=== PATIENT | female | born 1965 | race Asian ===

== ENCOUNTER 2017-02-20 05:00 | Observation (INO) | payer OTHER ==
[~2017-02-20] VITALS: Ht 165.1 cm; Wt 62.6 kg
[2017-02-20] MEDS ORDERED: SODIUM CHLORIDE 0.9% 1,000 ML IV ONE ×2 (05:59→09:00)
[2017-02-20] MEDS ORDERED: ONDANSETRON 2MG/ML, 2ML IVPush ONE (06:00)
[2017-02-20] MEDS ORDERED: FAMOTIDINE 20 MG/2 ML IVP ONE (06:00)
[2017-02-20] MEDS ORDERED: MORPHINE SULFATE 4 MG/ML, 1ML IVPush PRN (06:00)
[2017-02-20] MEDS ORDERED: SODIUM CHLORIDE FLUSH 10ML SYR IVF ONE (06:00)
[2017-02-20] MEDS ORDERED: SODIUM CHLORIDE 0.9% 1,000ML IVBOLUS ONE (06:00)
[2017-02-20] MEDS ORDERED: FAMOTIDINE 20 MG/2 ML ONE (06:09)
[2017-02-20] MEDS ORDERED: ONDANSETRON 2MG/ML, 2ML ONE (06:09)
[2017-02-20] MEDS ORDERED: morphine SULFATE 10 MG/ML, 1ML ONE (06:09)
[2017-02-20 06:34] LABS: HEMATOCRIT 43.7 % (34.6-47.8); HEMOGLOBIN 14.8 g/dL (11.7-16.4)
[2017-02-20 06:45] LABS: ASPARTATE AMINO TRANSFERASE 14 U/L (15-37); BLOOD UREA NITROGEN 16 mg/dL (7-18)
[2017-02-20] MEDS ORDERED: ENALAPRILAT 1.25 MG/ML, 2ML IVPush PRN (09:00)
[2017-02-20] MEDS ORDERED: ONDANSETRON 2MG/ML, 2ML IVPush PRN (09:00)
[2017-02-20] MEDS ORDERED: DOCUSATE 100 MG CAPSULE PO PRN (09:00)
[2017-02-20] MEDS ORDERED: morphine SULFATE 10 MG/ML, 1ML IVPush PRN (09:00)
[2017-02-20] MEDS ORDERED: ACETAMINOPHEN 325 MG TABLET PO PRN (09:00)
[2017-02-20] MEDS ORDERED: BISACODYL 10 MG SUPP PR PRN (09:00)
[2017-02-20] MEDS ORDERED: SODIUM CHLORIDE FLUSH 10ML SYR IVF PRN (09:30)
[2017-02-20] MEDS ORDERED: OMNIPAQUE 350 MG/ML, 100ML BOTTLE ONE (09:44)
[2017-02-20 10:02] VITALS: BP 116/75
[2017-02-20] MEDS: SODIUM CHLORIDE 0.9% 1,000 ML IV SCH ×2 (12:37→21:54)
[2017-02-20 13:33] VITALS: BP 112/72
[2017-02-20] MEDS: ONDANSETRON ODT 4 MG PO PRN (16:07)
[2017-02-20 19:39] VITALS: BP 109/64
[2017-02-21 02:21] VITALS: BP 103/68
[2017-02-21 05:48] LABS: HEMATOCRIT 35.9 % (34.6-47.8); HEMOGLOBIN 11.9 g/dL (11.7-16.4); WHITE BLOOD COUNT 5.8 x10^3/uL (3.4-10)
[2017-02-21 06:04] LABS: ASPARTATE AMINO TRANSFERASE 11 U/L (15-37); BLOOD UREA NITROGEN 12 mg/dL (7-18)
[2017-02-21] MEDS: SODIUM CHLORIDE 0.9% 1,000 ML IV SCH ×2 (07:14→18:00)
[2017-02-21 07:45] VITALS: BP 103/66
[2017-02-21] MEDS: ONDANSETRON ODT 4 MG PO PRN ×2 (13:23→18:37)
[2017-02-21 14:44] VITALS: BP 107/63
[2017-02-21] MEDS ORDERED: ONDA4TAB13 PO (15:13)
[2017-02-21] MEDS ORDERED: MECLIZINE 12.5 MG TABLET PO PRN (18:00)
[2017-02-21] MEDS ORDERED: SODIUM CHLORIDE 0.9% 1,000 ML IV SCH (18:00)
[2017-02-21 18:13] VITALS: BP 138/70
[2017-02-22 01:25] VITALS: BP 109/70
[2017-02-22 04:20] LABS: HEMATOCRIT 34.6 % (34.6-47.8); HEMOGLOBIN 11.6 g/dL (11.7-16.4); WHITE BLOOD COUNT 5.3 x10^3/uL (3.4-10)
[2017-02-22 04:34] LABS: ASPARTATE AMINO TRANSFERASE 17 U/L (15-37); BLOOD UREA NITROGEN 9 mg/dL (7-18)
[2017-02-22 07:18] VITALS: BP 126/82
[2017-02-22] MEDS: SODIUM CHLORIDE 0.9% 1,000 ML IV SCH (10:00)
== END 2017-02-22 13:24 | disposition home or self-care (01) ==
LOC: ED 08:17 → EDIP 08:18 → ED 09:10 → 3NW 10:34
PROVIDERS: ADMIT Internal Medicine; ATTEND Internal Medicine
DX: K85.90 Acute pancreatitis without necrosis or infection, unspecified (principal); R19.7 Diarrhea, unspecified; D64.9 Anemia, unspecified; E05.90 Thyrotoxicosis, unspecified without thyrotoxic crisis or storm; K76.0 Fatty (change of) liver, not elsewhere classified; E44.0 Moderate protein-calorie malnutrition; R11.2 Nausea with vomiting, unspecified
CPT/HCPCS: 36415; 71010; 74177; 76700; 80053; 80061; 81003; 83690; 83735; 84100; 84439; 84443; 85025; 93005; 96361; 96374; 96375; 96376; 99285; G0378; J2405; J7030; Q0162; Q9967; S0028